=== PATIENT | female | born 1950 | race Caucasian/White ===

== ENCOUNTER 2023-04-15 11:03 | Outpatient (AMB) | payer MEDICARE, BC, SELFPAY ==
[2023-04-15 11:07] VITALS: BP 190/100; PULSE 72; O2SAT 99; BMI 24.5
--- NOTE | 2023-04-15 11:07 | HO.NEPHOV_ITS ---
HPI HPI Comments History of Present Illness Details 72 yr old woman is here for follow up re garding hypertension Overall doing well. Usually walks 2 miles a day She has calssic white coat effect Home readings are excellent PFSH Family History Father Hypertension Heart attack Mother History of cancer of fallopian tube in adulthood Social History (Updated 04/15/23 @ 11:10 by Pina Wadsworth) Alcohol intake: current Comment: wine occ Patient Tobacco Use Status: Never used Tobacco Vital Signs 04/15/23 11:07 Height 5 ft 6.5 in Weight 154 lb BMI 24.5 BP 190/100 H Blood Pressure Location Lt brachial Position Sitting Pulse 72 Pulse Source Pulse Oximeter Pulse Oximetry (%) 99 Oxygen Delivery Method Room Air Physical Exam Vital Signs: Last Vital Signs Pulse 72 04/15/23 11:07 BP 190/100 H 04/15/23 11:07 Pulse Ox 99 04/15/23 11:07 Oxygen Delivery Method Room Air 04/15/23 11:07 BMI result Body Mass Index 24.5 Const General: comfortable Nutritional Appearance: well nourished Orientation/consciousness: patient oriented x3 HEENT Head: No normal to inspection Mouth: moist mucous membranes Neck Neck: Yes supple and Yes no JVD Resp Auscultation: clear to auscultation bilaterally, no rales and rub present Cardio Jugular venous distension: no JVD Palpation: no palpable S3 and no palpable S4 Heart sounds: no rubs GI Palpation (GI): Soft to palpation and nontender Percussion: No Fluid wave present General: Yes no CVA tenderness Back/Spine/Pelvis Back: no CVA tenderness Skin General skin exam: no rashes or lesions noted Neuro General: patient oriented x3 Extrem General: Yes no pedal edema and No clubbing Assessment & Plan Assessment & Plan (1) HTN (hypertension): Code(s): I10 - Essential (primary) hypertension (2) White coat syndrome with diagnosis of hypertension: Code(s): I10 - Essential (primary) hypertension Plan Middle aged woman with HTN with superimposed white coat effect Based on home BP readings, BP is well controlled Office readings elevated due to white coat effect NO changes were made to medications Low salt diet Monitor BP At home Orders: Orders Basic Metabolic Panel Today I10 - Essential (primary) hypertension Coding Level of Care Code Est Pt Level 4 (04531) Diagnoses HTN (hypertension) I10 White coat syndrome with diagnosis of hypertension I10 Results Reviewed Nephrology Results: No Data to Display
== END 2023-04-15 11:28 | disposition home or self-care (01) ==
LOC: HO.HKAS 11:03
PROVIDERS: PCP Internal Medicine; Visit Provider Internal Medicine Hypertension Specialist
DX: I10 Essential (primary) hypertension (principal)
CPT/HCPCS: 99214

== ENCOUNTER → 2023-04-15 11:03 | Outpatient (BNVA) | payer MEDICARE, BC, SELFPAY | PROVIDERS: PCP Internal Medicine; Visit Provider Internal Medicine Hypertension Specialist | DX: I10 Essential (primary) hypertension (principal) | CPT/HCPCS: 99212 ==

== ENCOUNTER 2023-11-04 13:53 | Outpatient (AMB) | payer MEDICARE, BC, SELFPAY ==
--- NOTE | 2023-11-04 13:51 | HO.NEPHOV ---
Vital Signs 11/04/23 13:52 Height 5 ft 6.5 in Weight 152 lb BMI 24.2 BP 188/108 H Blood Pressure Location Rt brachial Position Sitting Pulse 76 Pulse Source Pulse Oximeter Pulse Oximetry (%) 97 Oxygen Delivery Method Room Air Intake Visit Reasons: RSCNG 10/20 appt/ Conf Cottage Attendant Required: No Accompanied by: Self / Same As Patient Allergies methylprednisolone Allergy (Unknown, Verified 11/04/23 13:55) Unknown sulfa drugs Allergy (Mild, Uncoded 04/15/23 11:09) Unknown Medication List - Last Reconciled 11/04/23 by Mick Salazar MD acetaminophen (Tylenol Extra Strength) 500 mg PO Q6H PRN carvedilol 25 mg PO BID levothyroxine 100 mcg PO DAILY loratadine (Allergy Relief (loratadine)) 10 mg PO QAM multivitamin (One-A-Day Essential tablet) 1 tab PO DAILY olmesartan 20 mg PO DAILY omega 3-zcu-oqo-fish oil 1,000 mg (120 mg-180 mg) (Fish Oil) 1 cap PO DAILY PRN omeprazole 20 mg PO QAM HPI Comments Details: 72 yr old woman is here for follow up regarding hypertension Overall doing well. Restarted to walk 2 miles a day REcovering from tendinitis She has classic white coat effect based on ABPM Home readings are excellent PFSH Family History Father Hypertension Heart attack Mother History of cancer of fallopian tube in adulthood Social History Alcohol intake: current Comment: wine occ Patient Tobacco Use Status: Never used Tobacco Physical Exam Vital Signs: Last Vital Signs Pulse 76 11/04/23 13:52 BP 188/108 H 11/04/23 13:52 Pulse Ox 97 11/04/23 13:52 Oxygen Delivery Method Room Air 11/04/23 13:52 BMI result Body Mass Index 24.2 Awake. Comfortable. Neck is supple. Mucosa moist. Lungs bilateral scattered rhonchi. Heart S1-S2 heard no gallop. Abdomen soft. Extremities no edema. No involuntary movements. No myoclonus. Results Reviewed Nephrology Results: No Data to Display Assessment & Plan Assessment & Plan (1) HTN (hypertension): Code(s): I10 - Essential (primary) hypertension Category: Medical (2) White coat syndrome with diagnosis of hypertension: Code(s): I10 - Essential (primary) hypertension Category: Medical Plan Middle aged woman with HTN with superimposed white coat effect Based on home BP readings, BP is well controlled Office readings elevated due to white coat effect NO changes were made to medications Low salt diet Monitor BP At home Orders: Orders Basic Metabolic Panel 6 Months I10 - Essential (primary) hypertension Coding Level of Care Code Est Pt Level 3 (08378) Diagnoses HTN (hypertension) I10 White coat syndrome with diagnosis of hypertension I10
[2023-11-04 13:52] VITALS: BP 188/108; PULSE 76; O2SAT 97; BMI 24.2
== END 2023-11-04 14:09 | disposition home or self-care (01) ==
LOC: HO.HKAE 13:53
PROVIDERS: PCP Internal Medicine; Visit Provider Internal Medicine Hypertension Specialist
DX: I10 Essential (primary) hypertension (principal)
CPT/HCPCS: 99213

== ENCOUNTER → 2023-11-04 13:53 | Outpatient (BNVA) | payer MEDICARE, BC, SELFPAY | PROVIDERS: PCP Internal Medicine; Visit Provider Internal Medicine Hypertension Specialist | DX: I10 Essential (primary) hypertension (principal) | CPT/HCPCS: 99212 ==

== ENCOUNTER 2024-05-04 13:17 | Outpatient (AMB) | payer MEDICARE, BC, SELFPAY ==
--- NOTE | 2024-05-04 13:22 | HO.NEPHOV_ITS ---
Vital Signs 05/04/24 13:23 Height 5 ft 6.5 in Weight 154 lb BMI 24.5 BP 190/102 H Blood Pressure Location Lt brachial Position Sitting Pulse 111 H Pulse Source Pulse Oximeter Pulse Oximetry (%) 85 L Oxygen Delivery Method Room Air Intake Visit Reasons: Hypertension/ LVM Qualified Craft Worker Electrician Required: No Accompanied by: Self / Same As Patient Allergies methylprednisolone Allergy (Unknown, Verified 05/04/24 13:25) Unknown sulfa drugs Allergy (Mild, Uncoded 04/15/23 11:09) Unknown Medication List - Last Reconciled 05/04/24 by Mick Salazar MD acetaminophen (Tylenol Extra Strength) 500 mg PO Q6H PRN carvedilol 25 mg PO BID levothyroxine 100 mcg PO DAILY loratadine (Allergy Relief (loratadine)) 10 mg PO QAM multivitamin (One-A-Day Essential tablet) 1 tab PO DAILY olmesartan 20 mg PO DAILY omega 7-hzp-pgr-fish oil 1,000 (120-180) mg (Fish Oil) 1 cap PO DAILY PRN omeprazole 20 mg PO QAM HPI Comments Details: 72 yr old woman is here for follow up regarding hypertension Overall doing well. Restarted to walk 2 miles a day REcovering from tendinitis She has classic white coat effect based on ABPM Home readings are excellent PFSH Family History Father Hypertension Heart attack Mother History of cancer of fallopian tube in adulthood Social History Alcohol intake: current Comment: wine occ Patient Tobacco Use Status: Never used Tobacco Physical Exam Vital Signs: Last Vital Signs Pulse 111 H 05/04/24 13:23 BP 190/102 H 05/04/24 13:23 Pulse Ox 85 L 05/04/24 13:23 Oxygen Delivery Method Room Air 05/04/24 13:23 BMI result Body Mass Index 24.5 Awake. Comfortable. Neck is supple. Mucosa moist. Lungs bilateral scattered rhonchi. Heart S1-S2 heard no gallop. Abdomen soft. Extremities no edema. No involuntary movements. No myoclonus. Results Reviewed Nephrology Results: No Data to Display Assessment & Plan Assessment & Plan (1) HTN (hypertension): Code(s): I10 - Essential (primary) hypertension Category: Medical (2) White coat syndrome with diagnosis of hypertension: Code(s): I10 - Essential (primary) hypertension Category: Medical Plan Middle aged woman with HTN with superimposed white coat effect home BP readings reviewed Average SBP 140 average Diastolic mid 80s, Office readings elevated due to white coat effect Increase Olmesartan to 30 mg QD Monitor BP At home Orders: Orders Basic Metabolic Panel 6 Months I10 - Essential (primary) hypertension Medications: Changed From olmesartan 20 mg PO DAILY 90 tabs 3RF To olmesartan 30 mg (1.5 x 20 mg) PO DAILY 140 tabs 3RF Coding Level of Care Code Est Pt Level 4 (27347) Diagnoses HTN (hypertension) I10 White coat syndrome with diagnosis of hypertension I10
[2024-05-04 13:23] VITALS: BP 190/102; PULSE 111; O2SAT 85; BMI 24.5
--- OUTSIDE RECORDS SUMMARY | 2024-05-04 15:47 | XMS_ITS | Encounter Summary ---
Author Organization [facility] Address [address] [place] [address] Phone Care Team Providers Care Strawhat Inspector And Packer Name Role Phone Aditya Radford MD Primary Care Provider [phone] Encounter Details Date Type Department Care Team (Late st Contact Info) Description 06/18/2021 Documentation Only [facility] [address] [place] [address] Mick Salazar MD Social History Tobacco Use Types Packs/Day Years Used Date Smoking Tobacco: Never Smokeless Tobacco: Never Alcohol Use Standard Drinks/Week Comments Not Currently 0 (1 standard drink = 0.6 oz pur e alcohol) Comments Unknown Sex and Gender Information Value Date Recorded Sex Assigned at Not on file Legal Sex Female 7:17 AM EDT Gender Identity Not on file Sexual Orientation Not on file COVID-19 Exposure Response Date Recorded In the last month, have you been in contact with someone who was confirmed or suspected to have Coronavirus / COVID-19? No / Unsure 06/17/2021 2:01 PM EDT documented as of this encounter Plan of Treatment Not on file documented as of this encounter Visit Diagnoses Not on filedocumented in this encounter Care Teams Strawhat Inspector And Packer Relationship Specialty Start Date End Date Aditya Radford MD [address] [facility] [place], [place] PCP - General Internal Medicine 06/17/21 documented as of this encounter
--- OUTSIDE RECORDS SUMMARY | 2024-05-04 15:47 | XMS_ITS | Clinical Summary ---
Author Organization [facility] Address [address] [place] [address] Care Team Providers Care Executive Steward Name Role Phone Aditya Radford MD Primary Care Provider Allergies Active Allergy Reactions Criticality Noted Date Comments Sulfa Antibiotics 05/17/2020 Medications Medication Sig Dispensed Refills Start Date End Date Status MULTIPLE VITAMIN-FOLIC ACID PO Multiple Vitamin TABS TAKE 1 TABLET EVERY OTHER DAY Refills: 0 Active 0 Active Morgan-3 1000 MG CAPS Morgan 3 1200 MG Oral Capsule TAKE 2 CAPSULE DAILY Refills: 0 Active 0 Active atenolol (TENORMIN) tablet 50 mg Atenolol 50 MG Oral Tablet TAKE 1 TABLET TWICE DAILY. Refills: 0 Active 0 Active ibuprofen (ADVIL,MOTRIN) 200 MG tablet Ibuprofen 200 MG Oral Tablet TAKE TABLET PRN Refills: 0 Active 0 Active levothyroxine (SYNTHROID, LEVOXYL) tablet 112 mcg Levothyroxine Sodium 112 MCG Oral Tablet TAKE 1 TABLET DAILY. Refills: 0 Active 0 Active omeprazole (PriLOSEC) 20 MG capsule Omeprazole 20 MG Oral Capsule Delayed Release TAKE 1 CAPSULE TWICE DAILY Refills: 0 Active 0 Active amLODIPine-valsart an (EXFORGE) 5-320 MG per tablet Take 1 tablet by mouth daily. 0 Active Sod Picosulfate-Mag Ox-Cit Acd (Clenpiq) 10-3.5-12 MG-GM -GM/160ML SOLN Take 1 kit by mouth See admin instructions. 2 Bottle 0 05/23/2020 Active Family History Medical History Relation Name Comments Hemochromatosis Brother Colon polyps Sister Colon cancer Neg Hx Relation Name Status Comments Brother Sister Social History Tobacco Use Types Packs/Day Years Used Date Smoking Tobacco: Never Smokeless Tobacco: Never Alcohol Use Standard Drinks/Week Comments Yes 0 (1 standard drink = 0.6 oz pur e alcohol) Sex and Gender Information Value Date Recorded Sex Assigned at Female 04/06/2018 2:14 PM EST Gender Identity Not on file Sexual Orientation Not on file Job Start Date Occupation Industry Not on file Not on file Not on file Plan of Treatment Health Maintenance Due Date Last Done Comments Hepatitis C Screening 1950 COVID-19 Vaccine (#1) 04/30/1949 Depression Screening 1960 Preventative Health Evaluation 1966 DTap / Tdap / Td (1 - Tdap) 11/01/1967 Colon Cancer Screening (Colonoscopy) 1993 Shingrix-Zoster Vaccine (1 of 2) 1998 Fall Risk Assessment 2013 Osteoporosis Screening (DEXA Scan) 2013 Pneumococcal Vaccine (1 of 1 - PCV) 2013 Influenza Vaccine (#1) 2023 RSV Adult > 60+ Yrs or Pregn ant (1 - 1-dose 75+ series) 11/01/2023 Hepatitis B Vaccines Aged Out No long er eligible based on patient's age to complete this topic RSV Ped < 20 months Aged Out No longe r eligible based on patient's age to complete this topic Care Teams Executive Steward Relationship Specialty Start Date End Date Aditya Radford MD [address] [place] [address] PCP - General Internal Medicine 04/06/18
--- OUTSIDE RECORDS SUMMARY | 2024-05-04 15:47 | XMS_ITS | Clinical Summary ---
Author Organization [facility] Address [address] [place] [address] Phone Care Team Providers Care Senior Network Security Engineer Name Role Phone Aditya Radford MD Primary Care Provider [phone] Allergies Active Allergy Reactions Criticality Noted Date Comments Sulfa Antibiotics 05/17/2020 Medications carvedilol (COREG) 25 MG tablet Take 25 mg by mouth in the morning and 25 mg in the evening. 2 Active levothyroxine (SYNTHROID, LEVOTHROID) 100 MCG tablet Take 100 mcg by mouth 1 (one) time each day 2 Active omega-3 (FISH OIL) 1000 MG capsule Take 1,000 mg by mouth if needed Active omeprazole (PriLOSEC) [address] capsule Take 20 mg by mouth 1 (one) time each day Active acetaminophen (TYLENOL) 500 MG tablet Take by mouth every 6 (six) hours if needed for mild pain Active loratadine (CLARITIN) 10 MG tablet Take 10 mg by mouth 1 (one) time each day Active Estradiol 10 MCG tablet Take 1 tablet by mouth if needed 2 Active Multiple Vitamins-Minera ls (ONE-A-DAY WOMENS 50+ PO) Take 1 tablet by mouth 1 (one) time each day Active trolamine salicylate (ASPERCREME) 10 % cream Apply topically if needed for muscle/joint pain Active olmesartan (Benicar) 20 MG tablet Take 1 tablet (20 mg total) by mouth 1 (one) time each day 90 tablet 3 3 Active Active Problems Problem Noted Date Diagnosed Date Essential (primary) hypertension 06/18/2021 Family History Medical History Relation Comments Diabetes Father Cancer Mother Relation Status Comments Father Mother Social History Tobacco Use Types Packs/Day Years Used Date Smoking Tobacco: Never Smokeless Tobacco: Never Tobacco Cessation:Counseling Given: Not Answered Alcohol Use Standard Drinks/Week Comments Not Currently 0 (1 standard drink = 0.6 oz pur e alcohol) Comments Unknown Sex and Gender Information Value Date Recorded Sex Assigned at Not on file Legal Sex Female 7:17 AM EDT Gender Identity Not on file Sexual Orientation Not on file Last Filed Vital Signs Vital Sign Reading Time Taken Comments Blood Pressure 174/110 09/16/2022 2:12 PM EDT Pulse 70 09/16/2022 2:12 PM EDT Temperature - - Respiratory Rate - - Oxygen Saturation 99% 06/10/2022 2:44 PM EDT Inhaled Oxygen Concentration - - Weight 68 kg (150 lb) 09/16/2022 2:12 PM EDT Height - - Body Mass Index - - Plan of Treatment Health Maintenance Due Date Last Done Comments Breast Cancer Screening 1950 Pneumococcal Vaccine: 65+ Ye ars (1 of 2 - PCV) 1954 Colorectal Cancer Screening: Annual FOBT 1997 Colorectal Cancer Screening: Colonoscopy 1997 Colorectal Cancer Screening: Sigmoidoscopy 1997 Influenza Vaccine (#1) 2023 Hepatitis B Vaccine Aged Out No longe r eligible based on patient's age to complete this topic Insurance MEDICARE [facility] MEDICARE [facility] Care Teams Senior Network Security Engineer Relationship Specialty Start Date End Date Aditya Radford MD [address] [facility] [address] [place], [place] PCP - General Internal Medicine 06/17/21
--- OUTSIDE RECORDS SUMMARY | 2024-05-04 15:47 | XMS_ITS ---
Author Name [facility] Organization Unknown History of Medication Use Medication Directions Dispensed Refills Start Date End Date Stat us Olmesartan Medoxomil 20mg Tablet 08/06/2023 active levothyroxineTakeNo date recordedNo form recordedNo frequency recordedNo route recordedNo set duration recordedNo set duration amount recordedactiveNo dosage strength recordedNo dosage strength units of measure recorded active Carvedilol 25mg Tablet 08/06/2023 active carvediloLTakeNo joon e recordedNo form recordedNo frequency recordedNo route recordedNo set duration recordedNo set duration amount recordedactiveNo dosage strength recordedNo dosage strength units of measure recorded active Allergies Allergen Reaction Severity Comment Documented Date Source Statu s METHYLPREDNISOLONE Hives [facility] Problems Problem Status Onset Date Problem Type Date of Resolution Source Hypothyroidism, unspecified active ProblemAct [facility] Acute bronchitis, unspecified active 2023-06-26 ProblemAct [facility] Elevated blood-pressure reading, without diagnosis of hypertension active 2023-06-26 ProblemAct [facility] Equinus - Short Achilles tendon, RIGHT active 2023-09-17 EncounterDiagnosisAct [facility] DCR[facility] Contracture of tendo achilles active 2023-08-06 ProblemAct [facility] Pain in right foot active 2023-09-17 EncounterDiagnosisAc t [facility]POD[facility] Congenital pes planus active 2023-08-06 ProblemAct [facility] Posterior tibial tendinitis, left leg active 2023-08-06 ProblemAct [facility] Posterior tibial tendinitis, right leg active 2023-09-17 EncounterDiagnosisAct [facility] DCR[facility] [id number] - Congenital pes planus active 2023-09-17 EncounterDiagnosisAct [facility] Essential (primary) hypertension active ProblemAct [facility] Encounters Encounter Type Encounter Reason Primary Diagnosis Location Date [facility] 2023 [facility] 06/26/2023 Care Team Organization Name Specialty Phone Email Start Date End [facility]/2023 [facility] 07/15/2023 [facility] Not Disclosed Primary Care 06/27/2023 [facility] Not Disclosed Primary Care 06/27/2023
--- OUTSIDE RECORDS SUMMARY | 2024-05-04 15:47 | XMS_ITS | Encounter Summary ---
Author Organization [facility] Address [address] [place] [address] Phone Care Team Providers Care Jockey Room Custodian Name Role Phone Aditya Radford MD Primary Care Provider [phone] Encounter Details Date Type Department Care Team (Late st Contact Info) Description 07/16/2021 Telephone [facility] [address] [place] [address] Mick Salazar MD Social History [...] PM EDT documented as of this encounter Miscellaneous Notes * Telephone Encounter - Mick Salazar MD - 07/16/2021 7:24 PM EDT Noted Let her know- No changes for now * Telephone Encounter - Miri Garcia - 07/16/2021 3:39 PM EDT Pt called in with her bp readings from this week. CB# [phone] 07/10/21 136/84 07/11/21 137/90 07/12/21 133/88 6/4/22 135/85 07/14/21 153/96 07/15/21 132/78 07/16/21 139/86 documented in this encounter Plan of Treatment Not on file documented as of this encounter Visit Diagnoses Not on filedocumented in this encounter Care Teams Jockey Room Custodian Relationship Specialty Start Date End Date Aditya Radford MD [address] [facility] [address] [facility] [place] PCP - General Internal Medicine 06/17/21 documented as of this encounter
--- OUTSIDE RECORDS SUMMARY | 2024-05-04 15:47 | XMS_ITS | Clinical Summary ---
Author Organization [facility] Address [address] [place] [address] Care Team Providers Care Hairpiece Stylist Name Role Phone Aditya Radford MD Primary Care Provider [phone] Surgical History Surgery Date Site/Laterality Comments COLONOSCOPY 2012 PROCEDURE:COLONOSCOPY;COMMENT:Dr. Ma OOPHORECTOMY PROCEDURE:OOPHORECTOMY Medical History Medical History Date Comments Hypertension DX:Hypertension Hyperlipidemia DX:Hyperlipidemi a GERD (gastroesophageal reflux disease) DX:GERD (gastroesophageal reflux disease) Osteoporosis DX:Osteoporosis Family History Medical History Relation Name Comments [...] at Not on file Legal Sex Female 8:32 PM EST Gender Identity Not on file Sexual Orientation Not on file Obstetrics History Plan of Treatment Health Maintenance Due Date Last Done Comments DTaP,Tdap,and Td Vaccines (1 - Tdap) 11/01/1967 Pneumococcal Vaccine: 50+ Ye ars (1 of 1 - PCV) 1998 Zoster Vaccines (1 of 2) 1998 Colorectal Cancer Screening: Colonoscopy 01/11/2022 Depression Screening 01/11/2022 Falls Risk Assessment 01/11/2022 Hepatitis C Screening 01/11/2022 Osteoporosis Screening (Bone Density Screening) 01/11/2022 Social Influencers of Health Screening 01/11/2022 COVID-19 Vaccine (2023-2 5 season) 2023 Influenza Vaccine (#1) 2023 RSV Immunization Patients 60 + Years Old (1 - 1-dose 75+ series) 11/01/2023 HIB Vaccines Aged Out No longer eligi ble based on patient's age to complete this topic HPV Vaccines Aged Out No longer eligi ble based on patient's age to complete this topic Hepatitis A Vaccines Aged Out No long er eligible based on patient's age to complete this topic Hepatitis B Vaccines Aged Out No long er eligible based on patient's age to complete this topic IPV Vaccines Aged Out No longer eligi ble based on patient's age to complete this topic MMR Vaccines Aged Out No longer eligi ble based on patient's age to complete this topic Meningococcal ACWY Vaccine Aged Out N o longer eligible based on patient's age to complete this topic Meningococcal B Vacine Aged Out No lo nger eligible based on patient's age to complete this topic RSV Immunization Patients Un nilam 20 months Aged Out No longer eligible b ased on patient's age to complete this topic Varicella Vaccines Aged Out No longer eligible based on patient's age to complete this topic Care Teams Hairpiece Stylist Relationship Specialty Start Date End Date Aditya Radford MD [address] [place] [address] PCP - General Internal Medicine 04/06/18
== END 2024-05-04 13:37 | disposition home or self-care (01) ==
LOC: HO.HKAE 13:17
PROVIDERS: PCP Internal Medicine; Visit Provider Internal Medicine Hypertension Specialist
DX: I10 Essential (primary) hypertension (principal)
CPT/HCPCS: 99214

== ENCOUNTER → 2024-05-04 13:17 | Outpatient (BNVA) | payer MEDICARE, BC, SELFPAY | PROVIDERS: PCP Internal Medicine; Visit Provider Internal Medicine Hypertension Specialist | DX: I10 Essential (primary) hypertension (principal) | CPT/HCPCS: 99212 ==

== ENCOUNTER 2024-11-02 13:24 | Outpatient (AMB) | payer MEDICARE, BC, SELFPAY ==
--- NOTE | 2024-11-02 13:26 | HO.NEPHOV_ITS ---
Vital Signs 11/02/24 13:27 Height 5 ft 6.5 in Weight 152 lb BMI 24.2 BP 180/98 H Blood Pressure Location Lt brachial Position Sitting Pulse 84 Pulse Source Pulse Oximeter Pulse Oximetry (%) 97 Oxygen Delivery Method Room Air Intake Visit Reasons: +6mon follow-up w/labs-LVM Charter Boat Operator Required: No Accompanied by: Self / Same As Patient Allergies methylprednisolone Allergy (Unknown, Verified 11/02/24 13:28) Unknown sulfa drugs Allergy (Mild, Uncoded 04/15/23 11:09) Unknown HPI Comments Details: 72 yr old woman is here for follow up regarding hypertension Overall doing well. Restarted to walk 2 miles a day REcovering from tendinitis She has classic white coat effect based on ABPM Home readings are excellent 11/02/24 - The patient is a 74-year-old female presenting with hypertension. - Hypertension: Office readings high, home readings normal, stress-related thai vation noted. - Medication adherence confirmed, no changes in regimen. - Cough: Recent, likely allergy-related. - PFSH Family History Father Hypertension Heart attack Mother History of cancer of fallopian tube in adulthood Social History Alcohol intake: current Comment: wine occ Patient Tobacco Use Status: Never used Tobacco Physical Exam Vital Signs: Last Vital Signs Pulse 84 11/02/24 13:27 BP 180/98 H 11/02/24 13:27 Pulse Ox 97 11/02/24 13:27 Oxygen Delivery Method Room Air 11/02/24 13:27 BMI result Body Mass Index 24.2 Comfortable Neck supple no JVD. Lungs entry equal no rales. Heart S1-S2 heard no gallop or rub. Abdomen soft nontender. Neuro alert awake oriented. No asterixis. Extremities no edema. Assessment & Plan Assessment & Plan (1) HTN (hypertension): Code(s): I10 - Essential (primary) hypertension Category: Medical (2) White coat syndrome with diagnosis of hypertension: Code(s): I10 - Essential (primary) hypertension Category: Medical Plan Middle aged woman with HTN with superimposed white coat effect home BP readings reviewed Average SBP 120 to 130 Office readings elevated due to white coat effect Keep Olmesartan to 30 mg QD Monitor BP At home Orders: Orders Basic Metabolic Panel 6 Months I10 - Essential (primary) hypertension Coding Level of Care Code Est Pt Level 3 (81817) Diagnoses HTN (hypertension) I10 White coat syndrome with diagnosis of hypertension I10
[2024-11-02 13:27] VITALS: BP 180/98; PULSE 84; O2SAT 97; BMI 24.2
--- OUTSIDE RECORDS SUMMARY | 2024-11-02 15:50 | XMS_ITS | Encounter Summary ---
Author Organization [facility] Address [address] [place] [address] Phone Care Team Providers Care Computer Networking Instructor Name Role Phone Aditya Radford MD Primary Care Provider [phone] Encounter Details Date Type Department Care Team (Late st Contact Info) Description 06/18/2021 Documentation Only [facility] [address] [place] [address] Mick Salazar MD Social History [...] on filedocumented in this encounter Care Teams Computer Networking Instructor Relationship Specialty Start Date End Date Aditya Radford MD [address] [facility] [place], [place] PCP - General Internal Medicine 06/17/21 documented as of this encounter
--- OUTSIDE RECORDS SUMMARY | 2024-11-02 15:50 | XMS_ITS | Clinical Summary ---
Author Organization [facility] Address [address] [place] [address] Care Team Providers Care Nutrition Technician Name Role Phone Aditya Radford MD Primary Care Provider [phone] Allergies Active Allergy Reactions Criticality Noted Date Comments Sulfa Antibiotics 05/17/2020 Medications Medication Sig Dispensed Refills Start Date End Date Status MULTIPLE VITAMIN-FOLIC ACID PO Multiple Vitamin TABS TAKE 1 TABLET EVERY OTHER DAY Refills: 0 Active 0 Active Homestead-3 1000 MG CAPS Homestead 3 1200 MG Oral Capsule TAKE 2 [...] Vaccine (1 of 1 - PCV) 2013 RSV Adult > 60+ Yrs or Pregn ant (1 - 1-dose 75+ series) 11/01/2023 Influenza Vaccine (#1) 2024 Hepatitis B Vaccines Aged Out No long er eligible based on patient's age to complete this topic RSV Ped < 20 months Aged Out No longe r eligible based on patient's age to complete this topic Care Teams Nutrition Technician Relationship Specialty Start Date End Date Aditya Radford MD [address] [place] [address] PCP - General Internal Medicine 04/06/18
--- OUTSIDE RECORDS SUMMARY | 2024-11-02 15:50 | XMS_ITS ---
Author Name [facility] Organization Unknown History of Medication Use Medication Directions Dispensed Refills Start Date End Date Stat us Carvedilol 25mg Tablet 08/06/2023 active Olmesartan Medoxomil 20mg Tablet 08/06/2023 active carvediloLTakeNo joon e recordedNo form recordedNo frequency recordedNo route recordedNo set duration recordedNo set duration amount recordedactiveNo dosage strength recordedNo dosage strength units of measure recorded active levothyroxineTakeNo date recordedNo form recordedNo frequency recordedNo route recordedNo set duration recordedNo set duration amount recordedactiveNo dosage strength recordedNo dosage strength units of measure recorded active Allergies Allergen Reaction Severity Comment Documented Date Source Statu s METHYLPREDNISOLONE HIVES [facility] Problems Problem Status Onset Date Problem Type Date of Resolution Source Essential (primary) hypertension active ProblemAct [facility] Hypothyroidism, unspecified active ProblemAct [facility] Acute bronchitis, [...] right leg active 2023-09-17 EncounterDiagnosisAct ENS_PO DCRCT [id number] - Congenital pes planus active 2023-09-17 EncounterDiagnosisAct ENS_PO DCRCT Encounters Encounter Type Encounter Reason Primary Diagnosis Location Date [facility] 06/26/2023 Care Team Organization Name Specialty Phone Email Start Date End [facility] 07/15/2023 [facility] Not Disclosed Primary Care 06/27/2023 [facility] Not Disclosed Primary Care 06/27/2023
--- OUTSIDE RECORDS SUMMARY | 2024-11-02 15:50 | XMS_ITS | Clinical Summary ---
Author Organization [facility] Address [address] [place] [address] Phone Care Team Providers Care Housefellow Name Role Phone Aditya Radford MD Primary Care Provider [phone] Allergies Active Allergy Reactions Criticality Noted Date [...] Health Maintenance Due Date Last Done Comments Pneumococcal Vaccine: 50+ Ye ars (1 of 2 - PCV) [birth year]01/1969 Influenza Vaccine (#1) 2024 Hepatitis B Vaccine Aged Out No longe r eligible based on patient's age to complete this topic Insurance Medicare [facility] Medicare [facility] Care Teams Housefellow Relationship Specialty Start Date End Date Aditya Radford MD [address] [facility] [address] [place] PCP - General Internal Medicine 06/17/21
--- OUTSIDE RECORDS SUMMARY | 2024-11-02 15:50 | XMS_ITS | Encounter Summary ---
Author Organization [facility] Address [address] [place] [address] Phone Care Team Providers Care Canvas Shrinker Name Role Phone Aditya Radford MD Primary Care Provider [phone] Encounter Details Date Type Department Care Team (Late st Contact Info) Description 07/16/2021 Telephone [facility] [address] [place] [address] Mick Salazar MD Social History [...] her bp readings from this week. CB# [phone] 07/10/21 136/84 07/11/21 137/90 07/12/21 133/88 6/4/22 135/85 07/14/21 153/96 07/15/21 132/78 07/16/21 139/86 documented in this encounter Plan of Treatment Not on file documented as of this encounter Visit Diagnoses Not on filedocumented in this encounter Care Teams Canvas Shrinker Relationship Specialty Start Date End Date Aditya Radford MD [address] [facility] [address] [facility] [place] PCP - General Internal Medicine 06/17/21 documented as of this encounter
== END 2024-11-02 13:41 | disposition home or self-care (01) ==
LOC: HO.HKAE 13:25
PROVIDERS: PCP Internal Medicine; Visit Provider Internal Medicine Hypertension Specialist
DX: I10 Essential (primary) hypertension (principal)
CPT/HCPCS: 99213

== ENCOUNTER → 2024-11-02 13:24 | Outpatient (BNVA) | payer MEDICARE, BC, SELFPAY | PROVIDERS: PCP Internal Medicine; Visit Provider Internal Medicine Hypertension Specialist | DX: I10 Essential (primary) hypertension (principal) | CPT/HCPCS: 99212 ==